=== PATIENT | female | born 1950 | race Caucasian/White ===

== ENCOUNTER → 2017-03-18 | Day surgery (SDC) | payer MEDICARE ==
[~2017-03-18] MED LIST: ANASTROZOLE1 MG PO; FENTANYL CITRATE/PF 100MCG/2 ML INJ ONE; HUMULIN N100 UNITS/ SC; HYDROCHLOROTHIA25 MG; JANUVIA100 MG PO; LEVOTHYROXINE125 MCG PO; LOSARTAN POTAS100 MG PO; MIDAZOLAM HCL 2 MG/2 ML VIAL ONE; NORCO 10-325 T1 EACH PO; NOVOLIN 70100 UNITS/ SC; NOVOLOG MI100 UNIT/1 SC; OR PHACO EYE KIT ONE; PREOP PHACO EYE KIT ONE
== END | disposition home or self-care (01) ==
LOC: OR 11:33
PROVIDERS: ATTEND Ophthalmology
DX: H25.11 Age-related nuclear cataract, right eye (principal); C50.919 Malignant neoplasm of unspecified site of unspecified female breast; I10 Essential (primary) hypertension; E03.9 Hypothyroidism, unspecified; E11.9 Type 2 diabetes mellitus without complications; R06.83 Snoring; K76.0 Fatty (change of) liver, not elsewhere classified; Z79.4 Long term (current) use of insulin; Z86.73 Personal history of transient ischemic attack (TIA), and cerebral infarction without residual deficits
CPT/HCPCS: 36415; 66984; 82948; J2250

== ENCOUNTER 2017-08-18 03:22 | Emergency (ER) | payer MEDICARE, OTHER ==
[~2017-08-18] VITALS: Ht 160 cm; Wt 93.5 kg
[~2017-08-18 03:22] MED LIST changes: -FENTANYL CITRATE/PF 100MCG/2 ML INJ ONE; -MIDAZOLAM HCL 2 MG/2 ML VIAL ONE; -OR PHACO EYE KIT ONE; -PREOP PHACO EYE KIT ONE
--- OUTSIDE RECORDS SUMMARY | 2017-08-18 03:25 | XMS REPORT | Clinical Summary ---
Author Author [facility] Address Unknown Phone Unavailable Care Team Providers Care Day Care Home Provider Name Role Phone Karel Ferris MD PCP Allergies No Known Allergies Current Medications Prescription Sig. Disp. Refills Start End Date Status Date anastrozole (ARIMIDEX) 1 Take daily 06/06/19 Active mg chemo tablet 18 hydroCHLOROthiazide Take 1 tablet daily 06/02/19 Active (HYDRODIURIL) 25 MG 18 tablet levothyroxine (SYNTHROID, Take 1 tablet daily 05/02/19 Active LEVOXYL) 125 mcg tablet 18 losartan (COZAAR) 50 MG Take 1 tablet daily 05/26/19 Active tablet 18 JANUVIA 100 mg tablet Take 1 tablet daily 06/03/19 Active 18 levocetirizine (XYZAL) 5 Take 5 mg by mouth every Active MG tablet evening. olopatadine (PATADAY) 0.2 Apply to eye. Take as Active % drops directed when needed. SUMAtriptan (IMITREX) 25 Take 25 mg by mouth once Active MG tablet as needed for migraine. May repeat in 2 hours if unresolved. Do not exceed 200 mg in 24 hours. Active Problems Not on file Encounters Date Type Specialty Care Team Description 07/31/2017 Telephone Ophthalmology Dorene Maynard MD 06/24/2017 Office Visit Cardiology Adi Busby MD Preop cardiovascular exam (Primary Dx); Essential hypertension after 08/17/2016 Family History Medical History Relation Name Comments Heart disease Maternal Grandfather Relation Name Status Comments Maternal Grandfather Social History Tobacco Use Types Packs/Day Years Used Date Never Smoker Smokeless Tobacco: Never Used Alcohol Use Drinks/Week oz/Week Comments No Sex Assigned at Date Recorded Not on file Last Filed Vital Signs Vital Sign Reading Time Taken Blood Pressure 120/75 06/24/2017 12:04 PM CDT Pulse 75 06/24/2017 12:04 PM CDT Temperature 36.3 C (97.4 F) 06/24/2017 12:04 PM CDT Respiratory Rate - - Oxygen Saturation 98% 06/24/2017 12:04 PM CDT Inhaled Oxygen - - Concentration Weight 94.4 kg (208 lb 3.2 oz) 06/24/2017 12:04 PM CDT Height 161.3 cm (5' 3.5") 06/24/2017 12:04 PM CDT Body Mass Index 36.3 06/24/2017 12:04 PM CDT Plan of Treatment Health Maintenance Due Date Last Done Comments BREAST CANCER SCREENING 2000 COLON CANCER SCREENING 2000 SHINGRIX VACCINE (#1) 2000 ZOSTER VACCINE 2010 PNEUMOCOCCAL 12/20/2015 POLYSACCHARIDE VACCINE AGE 65 AND OVER PNEUMOCOCCAL-13 12/20/2015 INFLUENZA VACCINE 10/08/2017 Results * ECG 12 lead (06/24/2017 12:17 PM) Component Value Ref Range Ventricular rate 67 Atrial rate 67 SC interval 174 QRSD interval 84 QT interval 388 QTC interval 409 P axis 1 57 QRS axis 1 73 T wave axis 53 EKG impression Normal sinus rhythm-Normal ECG-No previous ECGs available- Specimen Performing [place] [facility] [place] [id number] [place] [address] after 08/17/2016 Insurance Payer Benefit Subscriber ID Type Phone Address Plan / Group AETNA MEDICARE AETNA xxxxxxxx O MEDICARE HMO/PPO [facility]
[2017-08-18] MEDS ORDERED: SUMATRIPTAN SUC25 MG PO (04:01)
[2017-08-18 04:44] VITALS: BP 145/80
== END 2017-08-18 04:50 | disposition home or self-care (01) ==
LOC: FSED 03:22
DX: R50.9 Fever, unspecified (principal); B34.9 Viral infection, unspecified
CPT/HCPCS: 81003; 87086; 87400; 99283